=== PATIENT | female | born 1980 | race Caucasian/White ===

== ENCOUNTER 2019-03-11 05:42 | Emergency (ER) | payer OTHER ==
[~2019-03-11] VITALS: Ht 165.1 cm; Wt 63.4 kg
[~2019-03-11 05:42] MED LIST: CYCL-259 PO; GABA300C10 PO; HYDR-3240 PO; LORA0.5T PO; TRAZ150T62 PO
[2019-03-11] MEDS ORDERED: MORPHINE SULFATE 4 MG/ML, 1ML ONE (06:18)
[2019-03-11] MEDS ORDERED: ONDANSETRON 2MG/ML, 2ML ONE (06:18)
--- NOTE | 2019-03-11 06:22 | NUR ---
ASSUMED CARE OF PATIENT IN ROOM 21. PIV STARTED AND BLOOD DRAWN WITH LAB AT BEDSIDE. PATIENT MEDICATED WITH MORPHINE AND ZOFRAN AND THEN TO ULTRASOUND AT THIS TIME.
[2019-03-11 06:23] LABS: BASOPHILS # (AUTO) 0.02 x10^3/uL (0-0.1); BASOPHILS % (AUTO) 0 % (0-1); EOSINOPHILS # (AUTO) 0.19 x10^3/uL (0-0.4); EOSINOPHILS % (AUTO) 4 % (1-7); LYMPHOCYTES # (AUTO) 1.37 x10^3/uL (1-3.4); LYMPHOCYTES % (AUTO) 26 % (22-44); MD NO; MEAN CORPUSCULAR HEMOGLOBIN 32.5 pg (27.0-34.8); MEAN CORPUSCULAR HGB CONC 33.8 g/dL (32.4-35.8); MEAN CORPUSCULAR VOLUME 96.2 fL (80-100); MEAN PLATELET VOLUME 10.2 fL (7.4-10.4); MONOCYTES # (AUTO) 0.25 x10^3/uL (0.2-0.8); MONOCYTES % (AUTO) 5 % (2-9); NEUTROPHILS # (AUTO) 3.46 x10^3/uL (1.8-6.8); NEUTROPHILS % (AUTO) 66 % (42-75); PLATELET COUNT 161 x10^3/uL (130-400); RED BLOOD COUNT 4.33 x10^6/uL (3.82-5.3); RED CELL DISTRIBUTION WIDTH 13.4 % (9.6-15.2)
[2019-03-11] MEDS ORDERED: SODIUM CHLORIDE FLUSH 10ML SYR IVF ONE (06:30)
[2019-03-11] MEDS ORDERED: MORPHINE SULFATE 4 MG/ML, 1ML IVPush PRN (06:30)
[2019-03-11] MEDS ORDERED: ONDANSETRON 2MG/ML, 2ML IVPush ONE (06:30)
[2019-03-11 06:35] LABS: ANION GAP 4 mmol/L (5-15); CALCIUM 8.6 mg/dL (8.5-10.1); CHLORIDE 110 mmol/L (98-107); CREATININE 0.86 mg/dL (0.55-1.02)
[2019-03-11 06:42] LABS: MICROSCOPIC INDICATED
[2019-03-11 06:43] LABS: CULTURE INDICATED? YES
[2019-03-11] MEDS ORDERED: KETOROLAC 30 MG/1 ML ONE (06:55)
[2019-03-11] MEDS ORDERED: KETOROLAC 30 MG/1 ML IVPush ONE (07:00)
[2019-03-11] MEDS ORDERED: TRAZ-137 PO (07:04)
[2019-03-11] MEDS ORDERED: CLON1TAB11 PO (07:06)
[2019-03-11] MEDS ORDERED: NAPR220C2 PO (07:07)
[2019-03-11] MEDS ORDERED: PROM25TA10 PO (07:08)
--- NOTE | 2019-03-11 07:23 | NUR ---
BREAK RN FOR PRIMARY RN BILL. PT AMBULATORY TO RESTROOM WITH STEADY GAIT, BACK TO ROOM. RESTING IN POSITION OF COMFORT. WARM BLANKET PROVIDED FOR COMFORT. CALL LIGHT IN REACH. FALL PRECUATIONS IN PLACE. ALL NEEDS MET AND ADDRESSED. VSS.
--- NOTE | 2019-03-11 07:42 | NUR ---
BEDSIDE REPORT AND CARE BACK TO PRIMARY RN BILL.
[2019-03-11 08:17] VITALS: BP 116/81
--- NOTE | 2019-03-11 08:18 | NUR ---
[place] RN ASSISTING PRIMARY RN'S KYEL/KELLEY WITH DISCHARGE ONLY. PT AND FAMILY GIVEN DISCHARGE INSTRUCTIONS, VERBALIZED UNDERSTANDING, HANDOUTS AND RX IN HAND. AMBULATED TO CHECKOUT DESK WITH STEADY GAIT. A&OX4. ALL QUESTIONS ADDRESSED AND ANSWERED. REPORTS NAUSEA RESOLVED AND PAIN IMPROVED TO 2/10 "BETTER, THANK YOU." DISCHARGED PER ERP ORDER.
== END 2019-03-11 08:25 | disposition home or self-care (01) ==
LOC: ED 07:00
DX: N83.292 Other ovarian cyst, left side (principal)
CPT/HCPCS: 36415; 76830; 80048; 81001; 82040; 84703; 85025; 87086; 96374; 96375; 99284; J1885; J2405